=== PATIENT | male | born 1955 | race Caucasian/White ===

== ENCOUNTER 2020-10-09 16:27 | Inpatient (IN) ==
[2020-10-09 17:04] LABS: Basophils # 0.1 K/mcL (0.0-0.2); Basophils % 0.6 %; Eosinophils # 0.5 K/mcL (0.0-0.6); Eosinophils % 4.7 %; Hematocrit 39.6 % (37.5-50.1); Hemoglobin 13.4 g/dL (12.9-16.9); Immature Granulocytes % 0.5 % (0-4); Lymphocytes # 2.9 K/mcL (0.6-4.6); Lymphocytes % 26.5 %; Mean Corpuscular HGB Conc 33.8 g/dL (31.6-35.5); Mean Corpuscular Hemoglobin 32.4 pg (28.0-33.3); Mean Corpuscular Volume 95.7 fL (83.0-100.0); Mean Platelet Volume 9.3 fL (9.4-12.4); Monocytes # 0.9 K/mcL (0.0-1.3); Monocytes % 8.5 %; Neutrophils # 6.4 K/mcL (1.6-8.9); Platelet Count 318 K/mcL (140-400); Red Blood Count 4.14 M/mcL (4.19-5.50); Red Cell Distribution Width 12.7 % (11.5-14.5); Segmented Neutrophils % 59.2 %; White Blood Count 10.9 K/mcL (4.3-11.1)
[2020-10-09 17:09] LABS: INR 1.1; Prothrombin Time 12.2 Seconds (9.4-12.1)
[2020-10-09 17:12] LABS: Activated Partial Thrombo Time 32.5 Seconds (26.0-36.0)
[2020-10-09 17:25] LABS: BUN/Creatinine Ratio 18 (6-26); Blood Urea Nitrogen 26 mg/dL (8-23); Carbon Dioxide 24 mEq/L (23-29); Chloride 100 mEq/L (98-107); Glucose 173 mg/dL (70-105); Osmolality,Calculated 293 (280-300); Potassium 3.5 mEq/L (3.5-5.1); Sodium 137 mEq/L (136-145); Troponin I < 0.03 ng/mL (< 0.04); eGFR For African Americans 58 (> 60); eGFR For Non-African Americans 48 (> 60)
[2020-10-09] MEDS ORDERED: Aspirin 325 MG TABLET PO ONE (17:41)
[2020-10-09] MEDS ORDERED: Nitroglycerin 1 INCH/GM PACKET TP ONE (17:57)
[2020-10-09] MEDS ORDERED: 0.9 % Sodium Chloride 500 ML IVC ONE (17:57)
[2020-10-09] MEDS ORDERED: Naloxone 0.4 MG/ML INJ IVP PRN (18:15)
[2020-10-09] MEDS ORDERED: Mag Hydrox/Al Hydrox/Simeth 30 ML UDC PO PRN (18:15)
[2020-10-09] MEDS ORDERED: Melatonin 3 MG TABLET PO PRN (18:15)
[2020-10-09] MEDS ORDERED: MOM Conc 10 ML UD.LIQ PO PRN (18:15)
[2020-10-09] MEDS ORDERED: Ondansetron ODT 4 MG TAB.RAPDIS SL PRN (18:15)
[2020-10-09] MEDS ORDERED: Perflutren Lipid Microsphere 1.3 ML in 0.9 % Sodium Chloride 8.7 ML IVP PRN (18:18)
[2020-10-09] MEDS ORDERED: Nitroglycerin 0.4 MG TAB.SUBL SL PRN (18:20)
[2020-10-09] MEDS ORDERED: GI Cocktail 40 ML EACH PO ONE (18:20)
[2020-10-09] MEDS ORDERED: Morphine Sulfate 2 MG/ML SYRINGE IVP PRN (18:20)
[2020-10-09] MEDS ORDERED: 0.9 % Sodium Chloride 1,000 ML IVC SCH (19:30)
[2020-10-10] MEDS ORDERED: *HR* Heparin 5,000 UNIT/ML VIAL IVP ONE (00:11)
[2020-10-10] MEDS ORDERED: *HR* Heparin 5,000 UNIT/ML VIAL IVP PRN ×2 (00:11)
[2020-10-10] MEDS: Heparin 25,000UNIT/250ML 1/2NS 25,000 UNIT/250 ML IV.SOLN IVC SCH ×2 (00:43→23:53)
[2020-10-10 01:10] LABS: Hematocrit 39.5 % (37.5-50.1); Hemoglobin 13.3 g/dL (12.9-16.9); Mean Corpuscular HGB Conc 33.7 g/dL (31.6-35.5); Mean Corpuscular Hemoglobin 32.3 pg (28.0-33.3); Mean Corpuscular Volume 95.9 fL (83.0-100.0); Mean Platelet Volume 9.5 fL (9.4-12.4); Platelet Count 331 K/mcL (140-400); Red Blood Count 4.12 M/mcL (4.19-5.50); Red Cell Distribution Width 12.8 % (11.5-14.5); White Blood Count 11.9 K/mcL (4.3-11.1)
[2020-10-10 01:16] LABS: Prothrombin Time 11.4 Seconds (9.4-12.1)
[2020-10-10 01:31] LABS: Alanine Aminotransferase 24 Units/L (7-52); Albumin 4.3 g/dL (3.5-5.7); Albumin/Globulin Ratio 1.3 (1.1-2.2); Alkaline Phosphatase 166 Units/L (34-104); Aspartate Amino Transferase 36 Units/L (13-39); BUN/Creatinine Ratio 20 (6-26); Bilirubin,Total 0.4 mg/dL (0.3-1.0); Blood Urea Nitrogen 26 mg/dL (8-23); Calcium 10.4 mg/dL (8.6-10.3); Carbon Dioxide 22 mEq/L (23-29); Chloride 100 mEq/L (98-107); Cholesterol 196 mg/dL (< 200); Globulin 3.4 g/dL (2.4-3.5); Glucose 160 mg/dL (70-105); HDL Cholesterol 28 mg/dL (40-59); LDL Cholesterol,Calculated 99 mg/dL (< 100); Osmolality,Calculated 288 (280-300); Potassium 3.2 mEq/L (3.5-5.1); Sodium 135 mEq/L (136-145); Total Protein 7.7 g/dL (6.4-8.9); Triglycerides 344 mg/dL (< 150); eGFR For African Americans > 60 (> 60); eGFR For Non-African Americans 57 (> 60)
[2020-10-10] MEDS ORDERED: *HR* Enoxaparin 40 MG/0.4 ML SYRINGE SQ SCH (06:00)
[2020-10-10] MEDS ORDERED: *HR* Amiodarone 150 MG/3 ML VIAL IVPB ONE (06:00)
[2020-10-10] MEDS ORDERED: *HR* Midazolam HCl 5 MG/5 ML VIAL IVP ONE (06:00)
[2020-10-10] MEDS ORDERED: *HR* EPINEPHrine 1 MG/10 ML SYRINGE IVP ONE (06:00)
[2020-10-10] MEDS ORDERED: Perflutren Lipid Microsphere 1.3 ML in 0.9 % Sodium Chloride 8.7 ML IVP PRN (06:36)
[2020-10-10] MEDS: FentaNYL (PF) 1,000 MCG/100 ML IV.SOLN IVC SCH ×3 (07:00→19:43)
[2020-10-10] MEDS ORDERED: *HR* Atropine Sulfate 1 MG/10 ML SYRINGE IVP ONE (07:00)
[2020-10-10 07:05] LABS: ABG Base Excess -13 mEq/L (-2 to 3); ABG HCO3 16 mEq/L (21-27); ABG Oxygen Saturation 92 % (95-98); ABG PCO2 49 mmHg (35-45); ABG PH 7.12 pH Units (7.32-7.45); ABG PO2 84 mmHg (85-104); ABG TCO2 18 mEq/L (20-26); Blood Gas Modality AF; Blood Gas VT 500 cc
[2020-10-10] MEDS ORDERED: *HR* Atropine Sulfate 1 MG/10 ML SYRINGE ONE (07:07)
[2020-10-10] MEDS ORDERED: *HR* Norepinephrine 4 MG/4 ML VIAL IVC ONE (07:09)
[2020-10-10] MEDS ORDERED: 0.9 % Sodium Chloride 250 ML ONE (07:09)
[2020-10-10] MEDS: Ipratropium/Albuterol Neb 3 ML IH SCH ×4 (08:11→20:31)
[2020-10-10] MEDS ORDERED: Artificial Tears SOLN 15 ML BOTTLE BOTH EYES PRN (08:26)
[2020-10-10] MEDS: Midazolam HCl 50 MG/100 ML IV.SOLN IVC SCH ×2 (08:29→17:00)
[2020-10-10] MEDS ORDERED: 0.9 % Sodium Chloride 1,000 ML ONE (08:55)
[2020-10-10] MEDS ORDERED: Heparin 1,000 UNITS/500 mL 500 ML ONE (08:55)
[2020-10-10] MEDS ORDERED: Nitroglycerin 1,000 MCG/5 ML VIAL IV ONE (08:55)
[2020-10-10] MEDS ORDERED: *HR* Heparin 10,000 UNIT/10 ML VIAL ONE (08:55)
[2020-10-10] MEDS ORDERED: ISOVUE-370 200 ML INFUS..BTL ONE ×2 (08:55→09:56)
[2020-10-10] MEDS ORDERED: methylPREDNISolone 125 MG/2 ML VIAL ONE (09:31)
[2020-10-10] MEDS ORDERED: Tirofiban 12.5 MG/250ML 12.5 MG/250 ML BAG ONE (09:47)
[2020-10-10] MEDS ORDERED: Tirofiban 12.5 MG/250ML 12.5 MG/250 ML BAG IVC SCH (10:30)
[2020-10-10 11:19] LABS: VBG Ionized Calcium 1.31 mmol/L (1.15-1.35)
[2020-10-10 11:20] LABS: ABG Base Excess -2 mEq/L (-2 to 3); ABG HCO3 25 mEq/L (21-27); ABG Oxygen Saturation 100 % (95-98); ABG PCO2 52 mmHg (35-45); ABG PO2 299 mmHg (85-104); ABG TCO2 27 mEq/L (20-26); Blood Gas VT 50 cc
[2020-10-10 11:21] LABS: Basophils # 0.1 K/mcL (0.0-0.2); Basophils % 0.4 %; Eosinophils # 0.1 K/mcL (0.0-0.6); Eosinophils % 0.5 %; Hematocrit 37.7 % (37.5-50.1); Hemoglobin 12.4 g/dL (12.9-16.9); Immature Granulocytes % 4.2 % (0-4); Lymphocytes # 2.9 K/mcL (0.6-4.6); Lymphocytes % 12.4 %; Mean Corpuscular HGB Conc 32.9 g/dL (31.6-35.5); Mean Corpuscular Hemoglobin 32.4 pg (28.0-33.3); Mean Corpuscular Volume 98.4 fL (83.0-100.0); Mean Platelet Volume 9.5 fL (9.4-12.4); Monocytes % 8.3 %; Neutrophils # 17.4 K/mcL (1.6-8.9); Platelet Count 402 K/mcL (140-400); Red Blood Count 3.83 M/mcL (4.19-5.50); Red Cell Distribution Width 12.9 % (11.5-14.5); Segmented Neutrophils % 74.2 %
[2020-10-10 11:22] LABS: White Blood Count 23.5 K/mcL (4.3-11.1)
[2020-10-10] MEDS: Aspirin 81 MG TAB.CHEW PO SCH (11:47)
[2020-10-10] MEDS: Artificial Tears SOLN 15 ML BOTTLE BOTH EYES SCH ×4 (11:47→23:53)
[2020-10-10] MEDS: Chlorhexidine Rinse 15 ML MOUTHWASH MM SCH ×2 (11:47→19:46)
[2020-10-10 11:48] LABS: Magnesium 1.6 mg/dL (1.6-2.6); Potassium 3.8 mEq/L (3.5-5.1)
[2020-10-10] MEDS: Pantoprazole 40 MG VIAL IVP SCH (11:48)
[2020-10-10] MEDS: Norepinephrine 4 MG/254 ML IV.SOLN IVC SCH (13:54)
[2020-10-10] MEDS: Ringers Solution, Lactated 1,000 ML IVC SCH (16:35)
[2020-10-10] MEDS: Azithromycin 500 MG in 0.9 % Sodium Chloride 250 ML IVPB SCH (16:40)
[2020-10-10] MEDS: Piperacillin/Tazobactam 3.375 GM in 0.9 % Sodium Chloride Mini Bag 100 ML IVPB SCH ×2 (16:42→23:51)
[2020-10-11] MEDS: Ipratropium/Albuterol Neb 3 ML IH SCH ×6 (00:55→20:17)
[2020-10-11 02:00] LABS: ABG Base Excess -3 mEq/L (-2 to 3); ABG HCO3 22 mEq/L (21-27); ABG Oxygen Saturation 97 % (95-98); ABG PCO2 39 mmHg (35-45); ABG PH 7.36 pH Units (7.32-7.45); ABG PO2 98 mmHg (85-104); ABG TCO2 23 mEq/L (20-26)
[2020-10-11] MEDS: Ringers Solution, Lactated 1,000 ML IVC SCH ×2 (02:44→13:31)
[2020-10-11] MEDS: Artificial Tears SOLN 15 ML BOTTLE BOTH EYES SCH ×5 (02:44→20:05)
[2020-10-11 02:48] LABS: VBG Ionized Calcium 1.18 mmol/L (1.15-1.35)
[2020-10-11 02:50] LABS: Hematocrit 35.8 % (37.5-50.1); Mean Corpuscular HGB Conc 33.5 g/dL (31.6-35.5); Mean Corpuscular Hemoglobin 33.1 pg (28.0-33.3); Mean Corpuscular Volume 98.6 fL (83.0-100.0); Mean Platelet Volume 9.5 fL (9.4-12.4); Platelet Count 321 K/mcL (140-400); Red Blood Count 3.63 M/mcL (4.19-5.50); Red Cell Distribution Width 13.2 % (11.5-14.5); White Blood Count 24.7 K/mcL (4.3-11.1)
[2020-10-11 03:13] LABS: Albumin 3.6 g/dL (3.5-5.7); Albumin/Globulin Ratio 1.2 (1.1-2.2); Bilirubin,Total 0.5 mg/dL (0.3-1.0); Magnesium 1.5 mg/dL (1.6-2.6); Phosphorous 4.5 mg/dL (2.7-4.5); Total Protein 6.6 g/dL (6.4-8.9); Troponin I 60.07 ng/mL (< 0.04)
[2020-10-11] MEDS: Norepinephrine 4 MG/254 ML IV.SOLN IVC SCH (06:44)
[2020-10-11] MEDS: Pantoprazole 40 MG VIAL IVP SCH (07:32)
[2020-10-11] MEDS: Aspirin 81 MG TAB.CHEW PO SCH (07:33)
[2020-10-11] MEDS: Azithromycin 500 MG in 0.9 % Sodium Chloride 250 ML IVPB SCH (07:33)
[2020-10-11] MEDS: Piperacillin/Tazobactam 3.375 GM in 0.9 % Sodium Chloride Mini Bag 100 ML IVPB SCH ×2 (07:33→16:08)
[2020-10-11] MEDS: Chlorhexidine Rinse 15 ML MOUTHWASH MM SCH ×2 (07:33→20:05)
[2020-10-11] MEDS: *HR* Heparin 5,000 UNIT/ML VIAL SQ SCH ×3 (10:32→22:02)
[2020-10-11 10:52] LABS: INR 1.1; Prothrombin Time 12.6 Seconds (9.4-12.1)
[2020-10-11] MEDS ORDERED: Perflutren Lipid Microsphere 1.3 ML in 0.9 % Sodium Chloride 8.7 ML IVP PRN (16:08)
[2020-10-11] MEDS ORDERED: Naloxone 0.4 MG/ML INJ IVP PRN (16:08)
[2020-10-11] MEDS ORDERED: Melatonin 3 MG TABLET PO PRN (16:08)
[2020-10-11] MEDS ORDERED: Artificial Tears SOLN 15 ML BOTTLE BOTH EYES PRN (16:08)
[2020-10-11] MEDS ORDERED: Ondansetron ODT 4 MG TAB.RAPDIS SL PRN (16:08)
[2020-10-11] MEDS ORDERED: Mag Hydrox/Al Hydrox/Simeth 30 ML UDC PO PRN (16:08)
[2020-10-11] MEDS ORDERED: MOM Conc 10 ML UD.LIQ PO PRN (16:08)
[2020-10-11] MEDS ORDERED: Nitroglycerin 0.4 MG TAB.SUBL SL PRN (16:08)
[2020-10-11] MEDS ORDERED: Doxycycline 100 MG in 0.9 % Sodium Chloride Mini Bag 100 ML IVPB SCH (18:00)
[2020-10-11] MEDS ORDERED: *HR* Metoprolol 5 MG/5 ML VIAL IVP ONE ×2 (18:00→18:10)
[2020-10-11] MEDS: Doxycycline 100 MG in 0.9 % Sodium Chloride Mini Bag 100 ML IVPB SCH (18:11)
[2020-10-11] MEDS: DilTIAZem 50 MG/50 ML IV.SOLN IVC SCH ×2 (18:50→22:19)
[2020-10-12] MEDS: Ringers Solution, Lactated 1,000 ML IVC SCH ×2 (00:02→10:05)
[2020-10-12] MEDS: Artificial Tears SOLN 15 ML BOTTLE BOTH EYES SCH ×3 (00:03→08:05)
[2020-10-12] MEDS: Piperacillin/Tazobactam 3.375 GM in 0.9 % Sodium Chloride Mini Bag 100 ML IVPB SCH ×3 (00:03→16:12)
[2020-10-12] MEDS: Ipratropium/Albuterol Neb 3 ML IH SCH ×7 (00:28→23:51)
[2020-10-12] MEDS: Acetaminophen 325 MG TABLET PO PRN ×3 (00:56→20:03)
[2020-10-12 01:01] LABS: Bilirubin,Urine Negative (Negative); Blood,Urine Small (Negative); Clarity,Urine Clear (Clear); Color,Urine Colorless (Yellow); Glucose,Urine (UA) Normal (Normal); Ketones,Urine Negative (Negative); Leukocyte Esterase,Urine Negative (Negative); Nitrite,Urine Negative (Negative); PH,Urine 6.5 pH Units (5.0-8.0); Protein,Urine Negative (Neg-Trace); RBC,Urine 15-30 per hpf (0-3); Specific Gravity,Urine 1.015 (1.010-1.025); Urobilinogen,Urine Normal (Normal); WBC,Urine 0-3 per hpf (0-3)
[2020-10-12] MEDS: DilTIAZem 50 MG/50 ML IV.SOLN IVC SCH ×2 (01:39→04:59)
[2020-10-12] MEDS: *HR* Heparin 5,000 UNIT/ML VIAL SQ SCH ×3 (05:09→22:03)
[2020-10-12] MEDS: Doxycycline 100 MG in 0.9 % Sodium Chloride Mini Bag 100 ML IVPB SCH ×2 (05:09→17:13)
[2020-10-12 05:20] LABS: Hematocrit 30.3 % (37.5-50.1); Mean Corpuscular Volume 97.1 fL (83.0-100.0); Mean Platelet Volume 9.6 fL (9.4-12.4); Platelet Count 215 K/mcL (140-400); Red Blood Count 3.12 M/mcL (4.19-5.50); Red Cell Distribution Width 13.3 % (11.5-14.5); White Blood Count 14.6 K/mcL (4.3-11.1)
[2020-10-12 05:26] LABS: Hemoglobin 10.3 g/dL (12.9-16.9)
[2020-10-12 05:41] LABS: Alanine Aminotransferase 122 Units/L (7-52); Albumin 3.4 g/dL (3.5-5.7); Albumin/Globulin Ratio 1.3 (1.1-2.2); Alkaline Phosphatase 107 Units/L (34-104); Aspartate Amino Transferase 72 Units/L (13-39); BUN/Creatinine Ratio 18 (6-26); Bilirubin,Total 0.7 mg/dL (0.3-1.0); Blood Urea Nitrogen 24 mg/dL (8-23); Calcium 8.8 mg/dL (8.6-10.3); Carbon Dioxide 26 mEq/L (23-29); Chloride 103 mEq/L (98-107); Globulin 2.6 g/dL (2.4-3.5); Glucose 155 mg/dL (70-105); Magnesium 1.4 mg/dL (1.6-2.6); Osmolality,Calculated 293 (280-300); Sodium 138 mEq/L (136-145); eGFR For African Americans > 60 (> 60); eGFR For Non-African Americans 53 (> 60)
[2020-10-12] MEDS: Chlorhexidine Rinse 15 ML MOUTHWASH MM SCH (08:05)
[2020-10-12] MEDS ORDERED: Aspirin 81 MG TAB.CHEW PO SCH (09:00)
[2020-10-12] MEDS ORDERED: Lidocaine 5% OINT 35 APPL/35.44 GM TUBE TP SCH (12:00)
[2020-10-12] MEDS ORDERED: Naloxone 0.4 MG/ML INJ IVP PRN (16:27)
[2020-10-12] MEDS ORDERED: Nitroglycerin 0.4 MG TAB.SUBL SL PRN (16:27)
[2020-10-12] MEDS ORDERED: Ondansetron ODT 4 MG TAB.RAPDIS SL PRN (16:27)
[2020-10-12] MEDS ORDERED: Mag Hydrox/Al Hydrox/Simeth 30 ML UDC PO PRN (16:27)
[2020-10-12] MEDS ORDERED: Perflutren Lipid Microsphere 1.3 ML in 0.9 % Sodium Chloride 8.7 ML IVP PRN (16:27)
[2020-10-12] MEDS ORDERED: MOM Conc 10 ML UD.LIQ PO PRN (16:27)
[2020-10-12] MEDS ORDERED: Melatonin 3 MG TABLET PO PRN (16:27)
[2020-10-12 21:16] LABS: Magnesium 1.6 mg/dL (1.6-2.6); Potassium 3.2 mEq/L (3.5-5.1)
[2020-10-13] MEDS: Piperacillin/Tazobactam 3.375 GM in 0.9 % Sodium Chloride Mini Bag 100 ML IVPB SCH ×3 (00:53→16:57)
[2020-10-13] MEDS: Ipratropium/Albuterol Neb 3 ML IH SCH ×6 (03:33→23:37)
[2020-10-13] MEDS: Doxycycline 100 MG in 0.9 % Sodium Chloride Mini Bag 100 ML IVPB SCH ×2 (05:23→16:58)
[2020-10-13] MEDS: *HR* Heparin 5,000 UNIT/ML VIAL SQ SCH ×3 (05:24→22:15)
[2020-10-13] MEDS: Aspirin 81 MG TAB.CHEW PO SCH (09:14)
[2020-10-13] MEDS: Lidocaine 5% OINT 35 APPL/35.44 GM TUBE TP SCH (09:15)
[2020-10-13 09:43] LABS: Basophils # 0.1 K/mcL (0.0-0.2); Basophils % 0.5 %; Eosinophils # 0.3 K/mcL (0.0-0.6); Eosinophils % 2.9 %; Hematocrit 31.9 % (37.5-50.1); Hemoglobin 10.4 g/dL (12.9-16.9); Immature Granulocytes % 0.3 % (0-4); Lymphocytes # 1.9 K/mcL (0.6-4.6); Mean Corpuscular HGB Conc 32.6 g/dL (31.6-35.5); Mean Corpuscular Hemoglobin 32.3 pg (28.0-33.3); Mean Corpuscular Volume 99.1 fL (83.0-100.0); Mean Platelet Volume 9.4 fL (9.4-12.4); Monocytes # 0.7 K/mcL (0.0-1.3); Monocytes % 7.1 %; Neutrophils # 6.5 K/mcL (1.6-8.9); Platelet Count 198 K/mcL (140-400); Red Blood Count 3.22 M/mcL (4.19-5.50); Red Cell Distribution Width 13.2 % (11.5-14.5); Segmented Neutrophils % 69.2 %; White Blood Count 9.3 K/mcL (4.3-11.1)
[2020-10-13 10:04] LABS: BUN/Creatinine Ratio 15 (6-26); Blood Urea Nitrogen 18 mg/dL (8-23); Carbon Dioxide 25 mEq/L (23-29); Chloride 103 mEq/L (98-107); Glucose 142 mg/dL (70-105); Magnesium 1.9 mg/dL (1.6-2.6); Osmolality,Calculated 290 (280-300); Potassium 3.4 mEq/L (3.5-5.1); Sodium 138 mEq/L (136-145); eGFR For African Americans > 60 (> 60); eGFR For Non-African Americans > 60 (> 60)
[2020-10-13] MEDS ORDERED: Baclofen 10 MG TABLET PO PRN (12:09)
[2020-10-13 18:38] LABS: BUN/Creatinine Ratio 16 (6-26); Blood Urea Nitrogen 19 mg/dL (8-23); Calcium 9.2 mg/dL (8.6-10.3); Carbon Dioxide 20 mEq/L (23-29); Chloride 106 mEq/L (98-107); Glucose 132 mg/dL (70-105); Magnesium 2.2 mg/dL (1.6-2.6); Osmolality,Calculated 288 (280-300); Potassium 4.6 mEq/L (3.5-5.1); Sodium 137 mEq/L (136-145); eGFR For African Americans > 60 (> 60); eGFR For Non-African Americans > 60 (> 60)
[2020-10-13] MEDS: Acetaminophen 325 MG TABLET PO PRN (19:59)
[2020-10-14] MEDS: Piperacillin/Tazobactam 3.375 GM in 0.9 % Sodium Chloride Mini Bag 100 ML IVPB SCH ×2 (00:32→09:55)
[2020-10-14] MEDS: Ipratropium/Albuterol Neb 3 ML IH SCH ×3 (03:24→11:31)
[2020-10-14 03:30] LABS: Hematocrit 32.7 % (37.5-50.1); Hemoglobin 10.4 g/dL (12.9-16.9); Mean Corpuscular HGB Conc 31.8 g/dL (31.6-35.5); Mean Corpuscular Hemoglobin 32.4 pg (28.0-33.3); Mean Corpuscular Volume 101.9 fL (83.0-100.0); Mean Platelet Volume 9.4 fL (9.4-12.4); Platelet Count 217 K/mcL (140-400); Red Blood Count 3.21 M/mcL (4.19-5.50); White Blood Count 9.9 K/mcL (4.3-11.1)
[2020-10-14 03:54] LABS: Alanine Aminotransferase 76 Units/L (7-52); Albumin 3.7 g/dL (3.5-5.7); Albumin/Globulin Ratio 1.2 (1.1-2.2); Alkaline Phosphatase 136 Units/L (34-104); Aspartate Amino Transferase 37 Units/L (13-39); BUN/Creatinine Ratio 13 (6-26); Bilirubin,Total 0.6 mg/dL (0.3-1.0); Blood Urea Nitrogen 16 mg/dL (8-23); Carbon Dioxide 22 mEq/L (23-29); Chloride 104 mEq/L (98-107); Glucose 117 mg/dL (70-105); Magnesium 1.9 mg/dL (1.6-2.6); Osmolality,Calculated 284 (280-300); Potassium 3.6 mEq/L (3.5-5.1); Sodium 136 mEq/L (136-145); Total Protein 6.7 g/dL (6.4-8.9); eGFR For African Americans > 60 (> 60); eGFR For Non-African Americans 59 (> 60)
[2020-10-14] MEDS: Doxycycline 100 MG in 0.9 % Sodium Chloride Mini Bag 100 ML IVPB SCH (06:40)
[2020-10-14] MEDS: *HR* Heparin 5,000 UNIT/ML VIAL SQ SCH (06:40)
[2020-10-14] MEDS: Acetaminophen 325 MG TABLET PO PRN (06:44)
[2020-10-14] MEDS ORDERED: MethylPREDNISolone 40 MG/ML VIAL IVP ONE (09:55)
[2020-10-14] MEDS: Aspirin 81 MG TAB.CHEW PO SCH (09:57)
[2020-10-14] MEDS: Lidocaine 5% OINT 35 APPL/35.44 GM TUBE TP SCH (09:57)
[2020-10-14 11:13] VITALS: BP 124/75
== END 2020-10-14 13:32 | disposition home or self-care (01) | DRG 246 ==
LOC: EMEROOARM 16:27 → 3BNU 16:27 → ICNU 10-10 06:39 → SUATTDRO 10-10 17:12 → 2ANU 10-13 16:16
PROVIDERS: ADMIT Internal Medicine; ATTEND Pharmacist